=== PATIENT | female | born 1940 | race Caucasian/White ===

== ENCOUNTER 2018-02-28 12:28 | Outpatient (CLI) | payer MEDICARE, BC ==
[~2018-02-28 12:28] MED LIST: ALBU6.7H INH; AMIO200T57 PO; ATOR20TA66 PO; CARV-49 PO; CYAN10006 IM; FLUT1DIS4 INH; LEVE250T PO; LOSA25TA21 PO; METF10002 PO; METF500T4 PO; MONT10TA24 PO
== END 2018-02-28 23:59 | disposition home or self-care (01) ==
LOC: CARD DIAG 12:28
PROVIDERS: ATTEND Internal Medicine Cardiovascular Disease
DX: I37.1 Nonrheumatic pulmonary valve insufficiency (principal); I35.8 Other nonrheumatic aortic valve disorders; I48.91 Unspecified atrial fibrillation; I10 Essential (primary) hypertension; E11.9 Type 2 diabetes mellitus without complications; J45.909 Unspecified asthma, uncomplicated; Z85.828 Personal history of other malignant neoplasm of skin
CPT/HCPCS: 93306

== ENCOUNTER 2019-07-08 10:01 | Outpatient (CLI) | payer MEDICARE, BC ==
[~2019-07-08 10:01] MED LIST changes: -ALBU6.7H INH; +ALBU6.7H9 INH; -AMIO200T57 PO; +AMIO200T61 PO; -LOSA25TA21 PO; +LOSA25TA41 PO; +METF-436 PO; +METF-438 PO; -METF10002 PO; -METF500T4 PO
[2019-07-08 10:40] LABS: TOTAL HEMOGLOBIN 16.3 G/dl (12.0-16.0)
== END 2019-07-08 23:59 | disposition home or self-care (01) ==
LOC: RT 10:01
PROVIDERS: ATTEND Internal Medicine Cardiovascular Disease
DX: J98.4 Other disorders of lung (principal); I51.7 Cardiomegaly; I48.91 Unspecified atrial fibrillation; J45.909 Unspecified asthma, uncomplicated; I10 Essential (primary) hypertension; E11.9 Type 2 diabetes mellitus without complications; Z90.710 Acquired absence of both cervix and uterus; Z79.899 Other long term (current) drug therapy
CPT/HCPCS: 71046; 85018; 94010; 94727; 94729

== ENCOUNTER 2021-10-11 07:34 | Day surgery (SDC) | payer MEDICARE, BC ==
[2021-10-10 13:58] LABS: ALBUMIN 3.4 G/DL (3.4-5.0); ANION GAP 9 (8-16); BASOPHILS % (AUTO) 0.5 % (0-1); BLOOD UREA NITROGEN 13 MG/DL (7-18); BUN/CREATININE RATIO 11.9 (6.6-38.0); CALCIUM 8.9 MG/DL (8.5-10.1); CHLORIDE 110 MMOL/L (99-107); CREATININE 1.09 MG/DL (0.40-0.90); EOSINOPHILS # (AUTO) 0.2 X10'3 (0-0.9); EOSINOPHILS % (AUTO) 2.5 % (0-6); GLUCOSE 140 MG/DL (70-104); HEMATOCRIT 45.1 % (35.0-45.0); HEMOGLOBIN 14.7 g/dl (12.0-16.0); LYMPHOCYTES # (AUTO) 1.8 X10'3 (1.1-4.8); LYMPHOCYTES % (AUTO) 27.4 % (21-51); MEAN CORPUSCULAR HEMOGLOBIN 27.4 PG (27.0-31.0); MEAN CORPUSCULAR HGB CONC 32.5 g/dL (33.0-36.5); MEAN CORPUSCULAR VOLUME 84.3 FL (78-98); MONOCYTES # (AUTO) 0.4 X10'3 (0-0.9); MONOCYTES % (AUTO) 6.4 % (2-12); NEUTROPHILS # (AUTO) 4.1 X10'3 (1.8-7.7); NEUTROPHILS % (AUTO) 63.2 % (42-75); PLATELET COUNT 184 X10'3 (140-440); POTASSIUM 4.2 MMOL/L (3.5-5.1); RED BLOOD COUNT 5.34 X10'6 (4.20-5.60); RED CELL DISTRIBUTION WIDTH 15.8 % (11.5-14.5); SODIUM 146 MMOL/L (135-145); WHITE BLOOD COUNT 6.6 X10'3 (4.5-11.0); eGFR 48 ML/MIN
[~2021-10-11] VITALS: Ht 172.7 cm; Wt 114.9 kg
[2021-10-11] VITALS (7 sets, daily range): BP systolic 127–154; BP diastolic 56–96
[~2021-10-11 07:34] MED LIST changes: +MONT-40 PO; -MONT10TA24 PO
[2021-10-11] MEDS ORDERED: diphenhydrAMINE 25mg capsule PO ONE (07:55)
[2021-10-11] MEDS ORDERED: amiodarone 150mg/dext, iso-os 100 ML IV ONE (07:55)
[2021-10-11] MEDS ORDERED: LORazepam 0.5 MG tablet PO ONE (07:55)
[2021-10-11] MEDS ORDERED: MIDAZolam 1mg/ml 10ml vial IV ONE (07:55)
[2021-10-11] MEDS ORDERED: atropine 0.1mg/ml 10ml syringe IV ONE (07:55)
[2021-10-11] MEDS ORDERED: morphine 10mg/ml inj. IV ONE (07:55)
[2021-10-11] MEDS ORDERED: APIX5TAB3 PO (08:20)
[2021-10-11] MEDS ORDERED: CHOL500049 PO (08:20)
[2021-10-11] MEDS ORDERED: GABA-530 PO (08:20)
[2021-10-11] MEDS ORDERED: CARV6.253 PO (08:20)
[2021-10-11] MEDS ORDERED: DAPA10TA PO (08:20)
[2021-10-11] MEDS ORDERED: ROSU10TA28 PO (08:20)
[2021-10-11] MEDS ORDERED: probiotic (08:27)
[2021-10-11] MEDS ORDERED: BIOT10005 (08:27)
[2021-10-11] MEDS ORDERED: allegra (08:27)
[2021-10-11] MEDS ORDERED: MONT10TA21 PO (08:27)
== END 2021-10-11 11:25 | disposition home or self-care (01) ==
LOC: SSTAY O 07:34
PROVIDERS: ATTEND Internal Medicine Cardiovascular Disease
DX: I48.0 Paroxysmal atrial fibrillation (principal); E11.9 Type 2 diabetes mellitus without complications; I10 Essential (primary) hypertension; E78.5 Hyperlipidemia, unspecified; I25.10 Atherosclerotic heart disease of native coronary artery without angina pectoris; Z79.899 Other long term (current) drug therapy; Z79.01 Long term (current) use of anticoagulants; Z79.84 Long term (current) use of oral hypoglycemic drugs
CPT/HCPCS: 36415; 80048; 82948; 85025; 85610; 92960; 93005; J2250; J2270

== ENCOUNTER 2021-11-22 08:33 | Outpatient (CLI) | payer MEDICARE, BC ==
[~2021-11-22 08:33] MED LIST changes: -ALBU6.7H9 INH; +APIX5TAB3 PO; -ATOR20TA66 PO; +BIOT10005; -CARV-49 PO; +CARV6.253 PO; +CHOL500049 PO; +DAPA10TA PO; -FLUT1DIS4 INH; +GABA-530 PO; -LEVE250T PO; -LOSA25TA41 PO; -METF-438 PO; -MONT-40 PO; +MONT10TA21 PO; +ROSU10TA28 PO; +allegra; +probiotic
== END 2021-11-22 23:59 | disposition home or self-care (01) ==
LOC: RT 08:33
PROVIDERS: ATTEND Internal Medicine Cardiovascular Disease
DX: I10 Essential (primary) hypertension (principal); Z79.899 Other long term (current) drug therapy
CPT/HCPCS: 71046; 94010; 94727; 94729

== ENCOUNTER 2023-03-25 05:46 | Inpatient (IN) | payer MEDICARE, BC ==
[2023-03-21 12:03] LABS: BASOPHILS % (AUTO) 0.5 % (0-1); EOSINOPHILS # (AUTO) 0.2 X10'3 (0-0.9); LYMPHOCYTES # (AUTO) 2.4 X10'3 (1.1-4.8); MEAN CORPUSCULAR HEMOGLOBIN 27.6 PG (27.0-31.0); MEAN CORPUSCULAR HGB CONC 32.2 g/dL (33.0-36.5); MEAN CORPUSCULAR VOLUME 85.8 FL (78-98); MEAN PLATELET VOLUME 9.7 FL (7.4-10.4); MONOCYTES # (AUTO) 0.6 X10'3 (0-0.9); MONOCYTES % (AUTO) 6.6 % (2-12); NEUTROPHILS # (AUTO) 5.4 X10'3 (1.8-7.7); NEUTROPHILS % (AUTO) 62.9 % (42-75); PRE OP HEMATOCRIT 49.6 % (35.0-45.0); PRE OP PLATELET COUNT 178 X10'3 (140-440); RED BLOOD COUNT 5.78 X10'6 (4.20-5.60); RED CELL DISTRIBUTION WIDTH 16.3 % (11.5-14.5)
[2023-03-21 12:20] LABS: ALBUMIN 3.6 G/DL (3.4-5.0); ALBUMIN/GLOBULIN RATIO 0.9 (1.1-1.5); ALKALINE PHOSPHATASE 74 IU/L (46-116); BLOOD UREA NITROGEN 14 MG/DL (7-18); BUN/CREATININE RATIO 14.1 (10.0-20.0); CALCIUM 9.4 MG/DL (8.5-10.1); CHLORIDE 105 MMOL/L (99-107); CREATININE 0.99 MG/DL (0.40-0.90); PRE OP ALT 32 U/L (30-65); PRE OP ANION GAP 9 (8-16); PRE OP AST 31 U/L (10-37); PRE OP BILIRUB, TOTAL 0.7 MG/DL (0.0-1.0); PRE OP GLUCOSE 171 MG/DL (70-104); PRE OP POTASSIUM 4.1 MMOL/L (3.4-5.1); PRE OP SODIUM 141 MMOL/L (135-145); TOTAL PROTEIN 7.4 G/DL (6.4-8.2); eGFR 54 ML/MIN
[~2023-03-25] VITALS: Ht 172.7 cm; Wt 106.8 kg
[2023-03-25] VITALS (28 sets, daily range): BP systolic 124–192; BP diastolic 56–101
[~2023-03-25 05:46] MED LIST changes: -BIOT10005; +BIOT10005 PO; +DOCUMENT DATE & TIME OF BETA-BLOCKER PO ONE; +FEXO180T94 PO; +LACT1CAP65 PO; +MONT-48 PO; -MONT10TA21 PO; -allegra; +cefazolin 2gm/D5W 100mL 100 ML IV ONE; +famotidine 20mg tablet PO ONE; -probiotic; +ringers solution, lacted 1,000 ML IV SCH; +tranexamic acid 650mg tablet PO ONE; +vancomycin 1,500 MG in NS 300ml IV soln IV ONE
--- NOTE | 2023-03-25 05:55 | NUR ---
CSM: PEDAL PULSES PRESENT AND MARKED, PT WATCHED THE VIDEO. MUPIROCIN CREAM USED AND PT EDUCATED ON THE INCENTIVE SPIROMETER. Addendum: 03/25/23 at 1251 by Nelly Arambula RN, RN Amended: Links added.
[2023-03-25] MEDS ORDERED: ROPIVAcaine 0.5% (5mg/ml) 30ml vial ONE ×2 (07:12→09:22)
[2023-03-25] MEDS ORDERED: midazolam 1 mg/ML 2ml injection ONE (07:56)
[2023-03-25] MEDS ORDERED: cloNIDine hcl/PF 100mcg/ml inj ONE (07:59)
[2023-03-25] MEDS ORDERED: fentaNYL /PF 50mcg/ml 5ml ampule ONE (08:02)
[2023-03-25] MEDS ORDERED: LIDOcaine 2% (20mg/ml) 5ml vial ONE (09:22)
[2023-03-25] MEDS ORDERED: dexamethasone sod phosphate 4mg/ml inj. ONE (09:22)
[2023-03-25] MEDS ORDERED: rocuronium 10mg/ml inj IV ONE (09:22)
[2023-03-25] MEDS ORDERED: 0.9 % SODIUM CHLORIDE 10 ML VIAL ONE (09:22)
[2023-03-25] MEDS ORDERED: ondansetron/PF 4mg/2ml inj ONE (09:22)
[2023-03-25] MEDS ORDERED: propofol inj 20 ML IV ONE (09:22)
[2023-03-25] MEDS ORDERED: HYDROmorphone/PF 0.2 MG/ML SYRINGE IV PRN ×2 (09:25)
[2023-03-25] MEDS ORDERED: meperidine/PF 25mg/ml syringe IV PRN ×3 (09:25)
[2023-03-25] MEDS ORDERED: labetalol 20mg/4ml (5mg/ml) syringe IV PRN (09:25)
[2023-03-25] MEDS ORDERED: hydrALAZINE 20mg/ml inj. IV PRN (09:25)
[2023-03-25] MEDS ORDERED: ringers solution, lacted 1,000 ML IV SCH (09:25)
[2023-03-25] MEDS ORDERED: acetaminophen 1,000mg/100ml IV 100 ML IV PRN (09:25)
[2023-03-25] MEDS ORDERED: ondansetron/PF 4mg/2ml inj IV PRN ×2 (09:25→10:45)
[2023-03-25] MEDS ORDERED: proCHLORperazine 10 MG/2 ml inj IV PRN (09:25)
[2023-03-25] MEDS ORDERED: neostigmine methylsulfate 1 MG/ML 10ml vial ONE (10:39)
[2023-03-25] MEDS ORDERED: glycopyrrolate 0.2mg/ml inj ONE (10:39)
[2023-03-25] MEDS ORDERED: magnesium hydroxide 30ml (MOM) UD suspension PO PRN (10:45)
[2023-03-25] MEDS: potassium cl 20mEq in 1/2 NS 1,000 ML IV SCH ×2 (10:45→16:03)
[2023-03-25] MEDS ORDERED: diphenhydrAMINE 25mg capsule PO PRN ×2 (10:45)
[2023-03-25] MEDS ORDERED: cyanocobalamin 500mcg tablet PO SCH (10:45)
[2023-03-25] MEDS ORDERED: bisacodyl 10mg suppository rectal RC PRN (10:45)
[2023-03-25] MEDS ORDERED: HYDROmorphone inj. 0.5 MG/0.5 ML DISP.SYRIN IV PRN (10:45)
[2023-03-25] MEDS ORDERED: HYDROmorphone 1 mg/ml syringe IV PRN (10:45)
[2023-03-25] MEDS ORDERED: oxyCODONE IR 5mg (immed. release) tablet PO PRN ×2 (10:45)
[2023-03-25] MEDS ORDERED: cholecalciferol (vitamin D3) 1,000 unit (25mcg) tablet PO SCH (10:45)
[2023-03-25] MEDS ORDERED: naloxone 0.4 mg/ml inj IV PRN (10:45)
[2023-03-25] MEDS ORDERED: acetaminophen 325mg tablet PO PRN (10:45)
--- NOTE | 2023-03-25 10:55 | NUR ---
Received from OR via BED, accompanied by Anesthesiologist-DR CORDOBA, report given. PATIENT WAKING UP, NO S/S OF PAIN, V/S WNL, SCD ON, 20G TO LUE, drsg to RIGHT KNEE-CDI WITH KNEE WRAP AND POWDER PACK PRESENT. GENERAL ANESTHESIA GIVEN, NEURO INTACT, PULSES PRESENT BILAT LE, TOES-PINK, WARM
--- NOTE | 2023-03-25 12:50 | NUR ---
PT HAS BEEN RESTING QUIETLY, DENIES PAIN, VSS, NO CHANGES IN ASSESSMENT, WAITING FOR RN TO BE AVAILABLE ON FLOOR.
[2023-03-25] MEDS: gabapentin 100mg capsule PO SCH ×2 (13:00→21:00)
--- NOTE | 2023-03-25 13:44 | NUR ---
Patient in room PAS IN 901. I have received report from Kenya GOMEZ and had the opportunity to ask questions and assume patient care.
--- NOTE | 2023-03-25 13:55 | NUR ---
PT HAS DONE WELL, PAIN MINIMAL, EAGER TO GET OUT OF BED, VSS, ASSESSMENT UNCHANGED-+PULSES BLE, DRSG-CDI, SCDS ON, F/C PRESENT-DRAINING WELL, CLEAR YELLOW URINE. REPORT CALLED TO NURSE-ALL QUESTIONS ANSWERED, TAKEN WITH ALL BELONGINGS TO ROOM 4023A- BED LOW AND LOCKED, CALL LIGHT IN REACH, PRIMARY NURSE IN TO RECEIVE PT.
[2023-03-25] MEDS: acetaminophen 325mg tablet PO SCH ×2 (14:00→20:00)
[2023-03-25] MEDS: ceFAZolin/D5W- 1GM premix 50 ML IV SCH (16:05)
--- NOTE | 2023-03-25 18:00 | NUR ---
I have reviewed and agree with interventions, assessments, and documentation by Mariel Anguiano LVN.
--- NOTE | 2023-03-25 18:18 | NUR ---
Problems reprioritized. Patient report given, questions answered & plan of care reviewed with Bela GOMEZ.
[2023-03-25] MEDS ORDERED: vancomycin/NS 1 GM ADD-VANTAGE 250 ML IV SCH (20:00)
[2023-03-25] MEDS: sennosides 8.6mg tablet PO SCH (21:00)
[2023-03-25] MEDS: metFORMIN 500mg tablet PO SCH (21:29)
[2023-03-25] MEDS: apixaban 5mg tablet PO SCH (21:29)
[2023-03-25] MEDS: carvedilol 6.25mg tablet PO SCH (21:30)
[2023-03-25] MEDS: atorvastatin 20mg tablet PO SCH (21:30)
[2023-03-25] MEDS: montelukast 10mg tablet PO SCH (21:30)
[2023-03-25] MEDS: amiodarone 200mg tablet PO SCH (21:31)
[2023-03-25] MEDS: HYDROcodone/acetaminophen 10/325mg tab PO PRN (21:31)
--- NOTE | 2023-03-25 22:00 | NUR ---
PATIENT IS REFUSING INSULIN FOR A BLOOD SUGAR OF 200. SHE TAKES METFORMIN BUT REFUSED HER 500 MG TAB AND SAID THAT SHE "ONLY TAKES HALF A TABLET AT HOME TWICE A DAY BECAUSE IT MAKES HER NAUSEOUS".
[2023-03-26] MEDS: ceFAZolin/D5W- 1GM premix 50 ML IV SCH (00:09)
[2023-03-26] MEDS: acetaminophen 325mg tablet PO SCH ×4 (00:10→20:49)
[2023-03-26 02:00] VITALS: BP 122/59
[2023-03-26] MEDS: potassium cl 20mEq in 1/2 NS 1,000 ML IV SCH (02:45)
[2023-03-26] MEDS: HYDROcodone/acetaminophen 10/325mg tab PO PRN ×3 (05:20→20:48)
[2023-03-26 05:53] LABS: BASOPHILS % (AUTO) 0.2 % (0-1); EOSINOPHILS % (AUTO) 0 % (0-6); HEMATOCRIT 39.7 % (35.0-45.0); HEMOGLOBIN 12.8 g/dl (12.0-16.0); LYMPHOCYTES # (AUTO) 1.7 X10'3 (1.1-4.8); LYMPHOCYTES % (AUTO) 13.9 % (21-51); MEAN CORPUSCULAR HEMOGLOBIN 27.5 PG (27.0-31.0); MEAN CORPUSCULAR HGB CONC 32.3 g/dL (33.0-36.5); MEAN CORPUSCULAR VOLUME 85.1 FL (78-98); MEAN PLATELET VOLUME 9.5 FL (7.4-10.4); MONOCYTES # (AUTO) 0.8 X10'3 (0-0.9); MONOCYTES % (AUTO) 6.9 % (2-12); NEUTROPHILS # (AUTO) 9.5 X10'3 (1.8-7.7); PLATELET COUNT 147 X10'3 (140-440); RED BLOOD COUNT 4.66 X10'6 (4.20-5.60); WHITE BLOOD COUNT 12.1 X10'3 (4.5-11.0)
[2023-03-26 05:57] LABS: ANION GAP 2 (8-16); CHLORIDE 108 MMOL/L (99-107); POTASSIUM 4.5 MMOL/L (3.5-5.1); SODIUM 138 MMOL/L (135-145)
[2023-03-26 06:00] VITALS: BP 107/61
--- NOTE | 2023-03-26 06:08 | NUR ---
Problems reprioritized. Patient report given, questions answered & plan of care reviewed with RANDAL VARGAS.
--- NOTE | 2023-03-26 06:20 | NUR ---
Patient in room ORTHO 4023. I have received report from PATRICIA Cramer and had the opportunity to ask questions and assume patient care.
[2023-03-26] MEDS ORDERED: non-formulary drug (Fexofenadine* (Allegra*) 1 TAB) PO SCH (08:00)
[2023-03-26] MEDS: amiodarone 200mg tablet PO SCH ×2 (08:00→20:48)
[2023-03-26] MEDS ORDERED: non-formulary drug (Biotin 1 CAP) PO SCH (08:00)
[2023-03-26] MEDS: carvedilol 6.25mg tablet PO SCH ×2 (08:00→20:48)
[2023-03-26] MEDS: metFORMIN 500mg tablet PO SCH ×2 (08:00→20:48)
[2023-03-26] MEDS: lactobacillus rhamnosus 10,000 MMU CELLS/CAPSULE PO SCH (08:24)
[2023-03-26] MEDS: apixaban 5mg tablet PO SCH ×2 (08:26→20:48)
[2023-03-26] MEDS: DAPAGLIFLOZIN 10MG TABLET PO SCH (08:27)
[2023-03-26] MEDS: gabapentin 100mg capsule PO SCH ×3 (08:29→20:48)
--- NOTE | 2023-03-26 08:54 | NUR ---
Cordarone and Coreg held at 0800 medication pass due to patient's BP of 115/44 and HR 51. Reasons for withholding both medications were discussed with the patient. Patient verbalized understanding.
[2023-03-26] MEDS ORDERED: normal saline 500ml IV soln 500 ML IV ONE (09:50)
[2023-03-26 10:00] VITALS: BP 134/78
[2023-03-26] MEDS ORDERED: ondansetron 4mg rapidly disintigrating tab PO PRN (15:00)
--- NOTE | 2023-03-26 15:15 | NUR ---
Joint surgery consult: Pt s/p R knee surgery this admit per EMR. Pt seen by ISELA for written/verbal high protein diet ed w/ RD contact information provided. ISELA encouraged pt to contact dietitian's office if further nutrition questions/concerns. Addendum: 03/26/23 at [address] Amended: Links added.
[2023-03-26 18:00] VITALS: BP 146/62
[2023-03-26] MEDS: sennosides 8.6mg tablet PO SCH (20:47)
[2023-03-26] MEDS: atorvastatin 20mg tablet PO SCH (20:48)
[2023-03-26] MEDS: montelukast 10mg tablet PO SCH (20:48)
[2023-03-26 22:00] VITALS: BP 128/78
[2023-03-27 02:00] VITALS: BP 116/69
[2023-03-27] MEDS: acetaminophen 325mg tablet PO SCH ×2 (02:17→07:14)
--- NOTE | 2023-03-27 02:22 | NUR ---
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
[2023-03-27 06:00] VITALS: BP 117/63
--- NOTE | 2023-03-27 06:10 | NUR ---
Patient in room ORTHO 4023. I have received report from Willem TEE and had the opportunity to ask questions and assume patient care.
[2023-03-27 06:24] LABS: BASOPHILS % (AUTO) 0.3 % (0-1); EOSINOPHILS # (AUTO) 0.1 X10'3 (0-0.9); EOSINOPHILS % (AUTO) 1.2 % (0-6); HEMATOCRIT 36.9 % (35.0-45.0); HEMOGLOBIN 11.9 g/dl (12.0-16.0); LYMPHOCYTES # (AUTO) 2.1 X10'3 (1.1-4.8); LYMPHOCYTES % (AUTO) 20.7 % (21-51); MEAN CORPUSCULAR HEMOGLOBIN 27.5 PG (27.0-31.0); MEAN CORPUSCULAR HGB CONC 32.2 g/dL (33.0-36.5); MEAN CORPUSCULAR VOLUME 85.4 FL (78-98); MEAN PLATELET VOLUME 9.9 FL (7.4-10.4); MONOCYTES # (AUTO) 1.2 X10'3 (0-0.9); MONOCYTES % (AUTO) 11.7 % (2-12); NEUTROPHILS # (AUTO) 6.6 X10'3 (1.8-7.7); NEUTROPHILS % (AUTO) 66.1 % (42-75); PLATELET COUNT 142 X10'3 (140-440); RED BLOOD COUNT 4.32 X10'6 (4.20-5.60); RED CELL DISTRIBUTION WIDTH 15.9 % (11.5-14.5); WHITE BLOOD COUNT 9.9 X10'3 (4.5-11.0)
--- NOTE | 2023-03-27 06:32 | NUR ---
Problems reprioritized. Patient report given, questions answered & plan of care reviewed with RANDAL Floyd.
[2023-03-27] MEDS: DAPAGLIFLOZIN 10MG TABLET PO SCH (07:11)
[2023-03-27] MEDS: apixaban 5mg tablet PO SCH ×2 (07:11→20:46)
[2023-03-27] MEDS: gabapentin 100mg capsule PO SCH ×3 (07:11→20:38)
[2023-03-27] MEDS: amiodarone 200mg tablet PO SCH ×2 (07:11→20:39)
[2023-03-27] MEDS: carvedilol 6.25mg tablet PO SCH ×2 (07:11→20:39)
[2023-03-27] MEDS: lactobacillus rhamnosus 10,000 MMU CELLS/CAPSULE PO SCH (07:11)
[2023-03-27] MEDS: HYDROcodone/acetaminophen 10/325mg tab PO PRN (07:12)
[2023-03-27] MEDS: metFORMIN 500mg tablet PO SCH ×2 (09:04→20:46)
[2023-03-27] MEDS ORDERED: acetaminophen 325mg tablet PO PRN (10:45)
[2023-03-27] MEDS ORDERED: pantoprazole 40mg Tablet.DR PO ONE (14:03)
[2023-03-27 18:00] VITALS: BP 144/73
--- NOTE | 2023-03-27 18:00 | NUR ---
I have reviewed and agree with interventions, assessments, and documentation by Mariel Anguiano LVN.
--- NOTE | 2023-03-27 18:32 | NUR ---
Problems reprioritized. Patient report given, questions answered & plan of care reviewed with Adwoa GOMEZ.
--- NOTE | 2023-03-27 18:51 | NUR ---
Patient in room ORTHO 4010. I have received report from RANDAL Madden and had the opportunity to ask questions and assume patient care.
--- NOTE | 2023-03-27 20:00 | NUR ---
I have reviewed and agree with all interventions, assessments performed and documented by RANDAL XIAO.
[2023-03-27] MEDS: montelukast 10mg tablet PO SCH (20:39)
[2023-03-27] MEDS: atorvastatin 20mg tablet PO SCH (20:39)
[2023-03-27] MEDS: sennosides 8.6mg tablet PO SCH (20:40)
[2023-03-27 22:00] VITALS: BP 133/57
--- NOTE | 2023-03-27 22:22 | NUR ---
Checked Pt Blood glucose it was 175. Pt refused insulin Protocol. Pt was educated on the importance of taking Insulin. Pt acknowledge the teaching, and still continued to refuse. Will continue to monitor Pt.
--- NOTE | 2023-03-28 03:26 | NUR ---
Checked Pt pulses on feet. They were bounding.
[2023-03-28 05:55] LABS: BASOPHILS % (AUTO) 0.4 % (0-1); EOSINOPHILS # (AUTO) 0.2 X10'3 (0-0.9); EOSINOPHILS % (AUTO) 1.9 % (0-6); HEMATOCRIT 32.4 % (35.0-45.0); HEMOGLOBIN 10.4 g/dl (12.0-16.0); LYMPHOCYTES # (AUTO) 2.4 X10'3 (1.1-4.8); LYMPHOCYTES % (AUTO) 26.3 % (21-51); MEAN CORPUSCULAR HEMOGLOBIN 27.4 PG (27.0-31.0); MEAN CORPUSCULAR HGB CONC 32.1 g/dL (33.0-36.5); MEAN CORPUSCULAR VOLUME 85.3 FL (78-98); MEAN PLATELET VOLUME 10.1 FL (7.4-10.4); MONOCYTES # (AUTO) 1.2 X10'3 (0-0.9); MONOCYTES % (AUTO) 12.6 % (2-12); NEUTROPHILS # (AUTO) 5.4 X10'3 (1.8-7.7); NEUTROPHILS % (AUTO) 58.8 % (42-75); PLATELET COUNT 132 X10'3 (140-440); WHITE BLOOD COUNT 9.3 X10'3 (4.5-11.0)
[2023-03-28 06:00] VITALS: BP 121/47
--- NOTE | 2023-03-28 06:11 | NUR ---
Problems reprioritized. Patient report given, questions answered & plan of care reviewed with RANDAL Madden.
--- NOTE | 2023-03-28 06:15 | NUR ---
Patient in room ORTHO 4023. I have received report from Yuri TEE and had the opportunity to ask questions and assume patient care.
[2023-03-28] MEDS: DAPAGLIFLOZIN 10MG TABLET PO SCH (07:18)
[2023-03-28] MEDS: amiodarone 200mg tablet PO SCH ×2 (07:18→21:17)
[2023-03-28] MEDS: lactobacillus rhamnosus 10,000 MMU CELLS/CAPSULE PO SCH (07:19)
[2023-03-28] MEDS: pantoprazole 40mg Tablet.DR PO SCH (07:19)
[2023-03-28] MEDS: apixaban 5mg tablet PO SCH ×2 (07:19→21:14)
[2023-03-28] MEDS: gabapentin 100mg capsule PO SCH ×3 (07:19→21:15)
[2023-03-28] MEDS: metFORMIN 500mg tablet PO SCH ×2 (07:19→21:16)
[2023-03-28] MEDS: carvedilol 6.25mg tablet PO SCH ×2 (07:19→21:17)
[2023-03-28] MEDS: HYDROcodone/acetaminophen 10/325mg tab PO PRN (07:21)
[2023-03-28 10:00] VITALS: BP 129/51
[2023-03-28] MEDS ORDERED: lactulose 20gm/30ml cup PO ONE (11:25)
[2023-03-28 12:47] LABS: BASOPHILS % (AUTO) 0.4 % (0-1); EOSINOPHILS # (AUTO) 0.1 X10'3 (0-0.9); EOSINOPHILS % (AUTO) 1.7 % (0-6); HEMATOCRIT 32.1 % (35.0-45.0); HEMOGLOBIN 10.3 g/dl (12.0-16.0); LYMPHOCYTES # (AUTO) 2.3 X10'3 (1.1-4.8); LYMPHOCYTES % (AUTO) 25.2 % (21-51); MEAN CORPUSCULAR HEMOGLOBIN 27.2 PG (27.0-31.0); MEAN CORPUSCULAR VOLUME 85.1 FL (78-98); MEAN PLATELET VOLUME 9.7 FL (7.4-10.4); MONOCYTES % (AUTO) 11.6 % (2-12); NEUTROPHILS # (AUTO) 5.5 X10'3 (1.8-7.7); NEUTROPHILS % (AUTO) 61.1 % (42-75); PLATELET COUNT 136 X10'3 (140-440); RED BLOOD COUNT 3.77 X10'6 (4.20-5.60); RED CELL DISTRIBUTION WIDTH 16.4 % (11.5-14.5)
[2023-03-28 12:52] LABS: ALANINE AMINOTRANSFERASE 16 U/L (12-78); ALBUMIN 2.4 G/DL (3.4-5.0); ALBUMIN/GLOBULIN RATIO 0.7 (1.1-1.5); ALKALINE PHOSPHATASE 56 IU/L (46-116); ANION GAP 5 (8-16); ASPARTATE AMINO TRANSFERASE 12 U/L (10-37); BILIRUBIN,TOTAL 0.4 MG/DL (0.1-1.0); BLOOD UREA NITROGEN 16 MG/DL (7-18); BUN/CREATININE RATIO 16.8 (10.0-20.0); CALCIUM 8.7 MG/DL (8.5-10.1); CHLORIDE 106 MMOL/L (99-107); CREATININE 0.95 MG/DL (0.40-0.90); GLUCOSE 153 MG/DL (70-104); SODIUM 141 MMOL/L (135-145); TOTAL CARBON DIOXIDE 29.7 MMOL/L (24-32); TOTAL PROTEIN 5.8 G/DL (6.4-8.2); eGFR 56 ML/MIN
--- NOTE | 2023-03-28 15:36 | NUR ---
transferred patient from commode to bed and became lighted and dizzy. Patient color visibly changed and o2 dropped to 89%. got patient in bed and put the head of the bed down. Placed her on 2L of , went up to 98%.
--- NOTE | 2023-03-28 15:49 | NUR ---
Patient has had multiple near syncopal episodes and hypotension. PA placed patient on telemetry, paged certified surgical tech/first assistant and canceled [facility] transfer for tomorrow. Patient had a BM and sample was sent to the lab.
--- NOTE | 2023-03-28 16:59 | NUR ---
Problems reprioritized. Patient report given, questions answered & plan of care reviewed with Ronnie GOMEZ.
--- NOTE | 2023-03-28 17:00 | NUR ---
Patient in room ORTHO 4023. I have received report from Salinas TEE and had the opportunity to ask questions and assume patient care.
--- NOTE | 2023-03-28 17:00 | NUR ---
Patient in room ORTHO 4023. I have received report from Mariel TEE and had the opportunity to ask questions and assume patient care.
[2023-03-28 17:23] LABS: OCCULT BLOOD STOOL NEGATIVE (Neg)
[2023-03-28] MEDS ORDERED: PERFLUTREN PROTEIN-A MICROSPHR (Optison) 0.22 MG/ML 3ML VIAL IV ONE (17:50)
[2023-03-28 18:00] VITALS: BP 133/62
--- NOTE | 2023-03-28 18:40 | NUR ---
Accucheck of 209 was taken after patient ate in error
--- NOTE | 2023-03-28 18:41 | NUR ---
[employer] documentation: I have reviewed and agree with all interventions, assessments performed and documented by Mariel Barkley LVN .
[2023-03-28] MEDS: sennosides 8.6mg tablet PO SCH (20:09)
[2023-03-28] MEDS: atorvastatin 20mg tablet PO SCH (21:15)
[2023-03-28] MEDS: montelukast 10mg tablet PO SCH (21:16)
[2023-03-28 22:00] VITALS: BP 115/56
[2023-03-29] MEDS: HYDROcodone/acetaminophen 10/325mg tab PO PRN ×3 (00:27→21:12)
--- NOTE | 2023-03-29 06:31 | NUR ---
Patient in room ORTHO 4023. I have received report from Unique GOMEZ and had the opportunity to ask questions and assume patient care.
[2023-03-29 06:44] VITALS: BP 140/54
[2023-03-29] MEDS: amiodarone 200mg tablet PO SCH ×2 (07:17→21:13)
[2023-03-29] MEDS: carvedilol 6.25mg tablet PO SCH ×2 (07:17→21:13)
[2023-03-29] MEDS: lactobacillus rhamnosus 10,000 MMU CELLS/CAPSULE PO SCH (07:17)
[2023-03-29] MEDS: pantoprazole 40mg Tablet.DR PO SCH (07:17)
[2023-03-29] MEDS: apixaban 5mg tablet PO SCH ×2 (07:17→21:13)
[2023-03-29] MEDS: gabapentin 100mg capsule PO SCH ×2 (07:17→12:59)
[2023-03-29] MEDS: metFORMIN 500mg tablet PO SCH (07:17)
[2023-03-29] MEDS: DAPAGLIFLOZIN 10MG TABLET PO SCH (07:18)
[2023-03-29 11:16] VITALS: BP 114/56
[2023-03-29 13:29] VITALS: BP_SYST 102; BP_SYST 122; BP_SYST 131; BP_DIAS 55; BP_DIAS 60; BP_DIAS 62
[2023-03-29] MEDS ORDERED: gabapentin 300mg capsule PO SCH (13:41)
[2023-03-29 18:00] VITALS: BP 118/85
--- NOTE | 2023-03-29 18:20 | NUR ---
Problems reprioritized. Patient report given, questions answered & plan of care reviewed with Unique GOMEZ.
[2023-03-29 20:00] VITALS: BP_SYST 118; BP_SYST 135; BP_DIAS 57; BP_DIAS 85
[2023-03-29] MEDS: sennosides 8.6mg tablet PO SCH (21:00)
[2023-03-29] MEDS: montelukast 10mg tablet PO SCH (21:12)
[2023-03-29] MEDS: atorvastatin 20mg tablet PO SCH (21:13)
[2023-03-29 22:00] VITALS: BP 114/56
--- NOTE | 2023-03-29 23:30 | NUR ---
Patient in room ORTHO 4023. I have received report from Nancy GOMEZ and had the opportunity to ask questions and assume patient care.
[2023-03-30] MEDS: HYDROcodone/acetaminophen 10/325mg tab PO PRN (05:05)
--- NOTE | 2023-03-30 06:29 | NUR ---
Patient in room ORTHO 4023. I have received report from Unique and had the opportunity to ask questions and assume patient care.
[2023-03-30 06:33] VITALS: BP 121/54
[2023-03-30] MEDS: apixaban 5mg tablet PO SCH (08:34)
[2023-03-30] MEDS: carvedilol 6.25mg tablet PO SCH (08:34)
[2023-03-30] MEDS: lactobacillus rhamnosus 10,000 MMU CELLS/CAPSULE PO SCH (08:34)
[2023-03-30] MEDS: pantoprazole 40mg Tablet.DR PO SCH (08:34)
[2023-03-30] MEDS: DAPAGLIFLOZIN 10MG TABLET PO SCH (08:34)
[2023-03-30] MEDS: amiodarone 200mg tablet PO SCH (08:34)
[2023-03-30 10:18] VITALS: BP 131/60
--- NOTE | 2023-03-30 11:11 | NUR ---
DM consult: Per EMR pt with T2DM, well controlled for age with A1c 7.0%. DM education not warranted at this time. Pt on a CHO controlled diet with fluctuating PO intake, documented with mostly 50-75% PO intake though up to 75-100% PO intake at three most recent meals meeting estimated nutrient needs. Per EMR pt discharging. Will continue to follow and provide full nutrition assessment tomorrow if pt does not discharge. Addendum: 03/30/23 at [address] Amended: Links added.
--- NOTE | 2023-03-30 15:10 | NUR ---
Problems reprioritized. Patient report given, questions answered & plan of care reviewed with Megha at [facility].
--- NOTE | 2023-03-30 17:09 | NUR ---
Called [facility] . Advised there was a 16:00 p/u, then CM note indicated 16:30 p/u. Katarzyna Hunter did say they were running behind but the patient was on the schedule to be picked up.
--- NOTE | 2023-03-30 18:08 | NUR ---
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 Report given to Jenna
[2023-03-31] MEDS ORDERED: amiodarone 200mg tablet PO SCH (08:00)
== END 2023-03-30 18:22 | DRG 470 ==
LOC: PAS IN 05:46 → ORTHO 4S 14:13
PROVIDERS: ADMIT Orthopaedic Surgery; ATTEND Orthopaedic Surgery
PROC: 8E0YXBZ Computer Assisted Procedure of Lower Extremity (ICD-10-PCS; 2023-03-25)
PROC: 8E0Y0CZ Robotic Assisted Procedure of Lower Extremity, Open Approach (ICD-10-PCS; 2023-03-25)
PROC: 0SRC0J9 Replacement of Right Knee Joint with Synthetic Substitute, Cemented, Open Approach (ICD-10-PCS; principal; 2023-03-25 08:20)
DX: M17.11 Unilateral primary osteoarthritis, right knee (principal); I50.32 Chronic diastolic (congestive) heart failure; E11.9 Type 2 diabetes mellitus without complications; G47.33 Obstructive sleep apnea (adult) (pediatric); Z60.2 Problems related to living alone; M21.161 Varus deformity, not elsewhere classified, right knee; I11.0 Hypertensive heart disease with heart failure; R42 Dizziness and giddiness; I25.10 Atherosclerotic heart disease of native coronary artery without angina pectoris; I48.0 Paroxysmal atrial fibrillation; I95.1 Orthostatic hypotension; Z79.01 Long term (current) use of anticoagulants; Z79.899 Other long term (current) drug therapy
CPT/HCPCS: 36415; 80051; 80053; 82272; 82607; 82948; 83036; 84443; 85025; 87081; 93005; 93306; 97110; 97116; 97161; 97530; A4215; A4615; A6258; A7000; C1713; C1758; C1776; G0378; J0131; J0690; J0735; J1100; J1170; J2175; J2250; J2405; J2704; J2710; J2795; J3010; J3370; J3480; J3490; J7040; J7120

== ENCOUNTER 2023-06-19 07:59 | Day surgery (SDC) | payer MEDICARE, BC ==
[2023-06-18 12:07] LABS: BASOPHILS # (AUTO) 0.1 X10'3 (0-0.2); BASOPHILS % (AUTO) 0.6 % (0-1); EOSINOPHILS # (AUTO) 0.1 X10'3 (0-0.9); EOSINOPHILS % (AUTO) 1.6 % (0-6); HEMATOCRIT 43.7 % (35.0-45.0); HEMOGLOBIN 13.9 g/dl (12.0-16.0); LYMPHOCYTES # (AUTO) 2.3 X10'3 (1.1-4.8); LYMPHOCYTES % (AUTO) 24.9 % (21-51); MEAN CORPUSCULAR HEMOGLOBIN 26.9 PG (27.0-31.0); MEAN CORPUSCULAR HGB CONC 31.8 g/dL (33.0-36.5); MEAN CORPUSCULAR VOLUME 84.6 FL (78-98); MEAN PLATELET VOLUME 9.6 FL (7.4-10.4); MONOCYTES # (AUTO) 0.7 X10'3 (0-0.9); MONOCYTES % (AUTO) 7.3 % (2-12); NEUTROPHILS # (AUTO) 5.9 X10'3 (1.8-7.7); NEUTROPHILS % (AUTO) 65.6 % (42-75); PLATELET COUNT 192 X10'3 (140-440); RED BLOOD COUNT 5.16 X10'6 (4.20-5.60); RED CELL DISTRIBUTION WIDTH 16.8 % (11.5-14.5)
[2023-06-18 12:14] LABS: ANION GAP 11 (8-16); BLOOD UREA NITROGEN 20 MG/DL (7-18); BUN/CREATININE RATIO 19.6 (10.0-20.0); CHLORIDE 105 MMOL/L (99-107); CREATININE 1.02 MG/DL (0.40-0.90); GLUCOSE 155 MG/DL (70-104); POTASSIUM 4.3 MMOL/L (3.5-5.1); SODIUM 138 MMOL/L (135-145); TOTAL CARBON DIOXIDE 22.2 MMOL/L (24-32); eGFR 52 ML/MIN
[~2023-06-19] VITALS: Ht 172.7 cm; Wt 105.3 kg
[2023-06-19] VITALS (10 sets, daily range): BP systolic 121–150; BP diastolic 66–105; PULSE 57–125; RESP 14–15; TEMP 98.2; O2SAT 92–99
[~2023-06-19 07:59] MED LIST changes: +AMI200T PO; -AMIO200T61 PO; -DOCUMENT DATE & TIME OF BETA-BLOCKER PO ONE; -cefazolin 2gm/D5W 100mL 100 ML IV ONE; -famotidine 20mg tablet PO ONE; -ringers solution, lacted 1,000 ML IV SCH; -tranexamic acid 650mg tablet PO ONE; -vancomycin 1,500 MG in NS 300ml IV soln IV ONE
[2023-06-19] MEDS ORDERED: atropine 0.1mg/ml 10ml syringe IV ONE (08:25)
[2023-06-19] MEDS ORDERED: morphine 10mg/ml inj. IV ONE (08:25)
[2023-06-19] MEDS ORDERED: MIDAZolam 1mg/ml 10ml vial IV ONE (08:25)
[2023-06-19] MEDS ORDERED: amiodarone 150mg/dext, iso-os 100 ML IV ONE (08:25)
[2023-06-19] MEDS ORDERED: LORazepam 0.5 MG tablet PO ONE (08:25)
[2023-06-19] MEDS ORDERED: diphenhydrAMINE 25mg capsule PO ONE (08:25)
[2023-06-19] MEDS ORDERED: normal saline 1000ml 1,000 ML IV SCH (08:25)
== END 2023-06-19 11:15 | disposition home or self-care (01) ==
LOC: SSTAY O 07:59
PROVIDERS: ATTEND Internal Medicine Cardiovascular Disease
DX: I48.0 Paroxysmal atrial fibrillation (principal); I25.10 Atherosclerotic heart disease of native coronary artery without angina pectoris; I34.0 Nonrheumatic mitral (valve) insufficiency; E11.9 Type 2 diabetes mellitus without complications; E78.5 Hyperlipidemia, unspecified; G47.33 Obstructive sleep apnea (adult) (pediatric); E66.9 Obesity, unspecified; Z68.35 Body mass index [BMI] 35.0-35.9, adult; J45.909 Unspecified asthma, uncomplicated; I11.0 Hypertensive heart disease with heart failure; I50.30 Unspecified diastolic (congestive) heart failure; Z90.710 Acquired absence of both cervix and uterus; Z90.49 Acquired absence of other specified parts of digestive tract; Z98.890 Other specified postprocedural states; Z98.49 Cataract extraction status, unspecified eye; Z79.01 Long term (current) use of anticoagulants; Z79.899 Other long term (current) drug therapy
CPT/HCPCS: 36415; 80048; 82948; 85025; 85610; 92960; 93005; J2250; J2274; J7030; A4620

== ENCOUNTER 2024-06-16 06:49 | Day surgery (SDC) | payer MEDICARE, BC ==
[2024-06-15 11:41] LABS: BASOPHILS % (AUTO) 0.6 % (0-1); EOSINOPHILS # (AUTO) 0.1 X10'3 (0-0.9); EOSINOPHILS % (AUTO) 1.7 % (0-6); HEMATOCRIT 43.1 % (35.0-45.0); HEMOGLOBIN 13.9 g/dl (12.0-16.0); MEAN CORPUSCULAR HEMOGLOBIN 27.3 PG (27.0-31.0); MEAN CORPUSCULAR HGB CONC 32.2 g/dL (33.0-36.5); MEAN CORPUSCULAR VOLUME 84.7 FL (78-98); MEAN PLATELET VOLUME 9.8 FL (7.4-10.4); MONOCYTES # (AUTO) 0.6 X10'3 (0-0.9); MONOCYTES % (AUTO) 7.6 % (2-12); NEUTROPHILS # (AUTO) 4.6 X10'3 (1.8-7.7); NEUTROPHILS % (AUTO) 63.1 % (42-75); PLATELET COUNT 167 X10'3 (140-440); RED BLOOD COUNT 5.08 X10'6 (4.20-5.60); RED CELL DISTRIBUTION WIDTH 16.2 % (11.5-14.5); WHITE BLOOD COUNT 7.3 X10'3 (4.5-11.0)
[2024-06-15 11:56] LABS: ALBUMIN 2.8 G/DL (3.4-5.0); ANION GAP 7 (8-16); BLOOD UREA NITROGEN 22 MG/DL (7-18); CALCIUM 8.7 MG/DL (8.5-10.1); CHLORIDE 102 MMOL/L (99-107); GLUCOSE 216 MG/DL (70-104); POTASSIUM 3.5 MMOL/L (3.5-5.1); SODIUM 137 MMOL/L (135-145); eGFR 47 ML/MIN
[2024-06-15 11:58] LABS: INR 1.1 INR; PROTHROMBIN TIME 11.6 SECONDS (9.0-12.0)
[2024-06-16] VITALS (11 sets, daily range): BP systolic 101–133; BP diastolic 46–86; PULSE 53–98; RESP 13–18; TEMP 98; O2SAT 95–97
[~2024-06-16] VITALS: Ht 172.7 cm; Wt 110.7 kg
[~2024-06-16 06:49] MED LIST changes: -CHOL500049 PO; -ROSU10TA28 PO; +ROSU10TA72 PO
[2024-06-16] MEDS ORDERED: diphenhydrAMINE 25mg capsule PO ONE (07:20)
[2024-06-16] MEDS ORDERED: atropine 0.1mg/ml 10ml syringe IV ONE (07:20)
[2024-06-16] MEDS ORDERED: amiodarone 150mg/dext, iso-os 100 ML IV ONE (07:20)
[2024-06-16] MEDS ORDERED: LORazepam 0.5 MG tablet PO ONE (07:20)
[2024-06-16] MEDS ORDERED: GLUC3SPR TOP (07:35)
[2024-06-16] MEDS ORDERED: APIX2.5T PO (07:35)
[2024-06-16] MEDS ORDERED: FURO20TA4 PO (07:35)
[2024-06-16] MEDS ORDERED: ALBU18HF2 INH (07:35)
[2024-06-16] MEDS ORDERED: CHOL500049 PO (07:35)
[2024-06-16] MEDS ORDERED: HYDR25TA4 PO (07:35)
[2024-06-16] MEDS ORDERED: CARV12.549 PO (07:35)
[2024-06-16] MEDS: morphine 10mg/ml inj. IV ONE (10:29)
[2024-06-16] MEDS: MIDAZolam 1mg/ml 10ml vial IV ONE (10:29)
== END 2024-06-16 12:31 | disposition home or self-care (01) ==
LOC: SSTAY O 06:49
PROVIDERS: ATTEND Internal Medicine Cardiovascular Disease
DX: I48.0 Paroxysmal atrial fibrillation (principal); I44.7 Left bundle-branch block, unspecified; I11.0 Hypertensive heart disease with heart failure; I50.30 Unspecified diastolic (congestive) heart failure; E11.9 Type 2 diabetes mellitus without complications; I25.10 Atherosclerotic heart disease of native coronary artery without angina pectoris; E78.5 Hyperlipidemia, unspecified; G47.30 Sleep apnea, unspecified; I42.0 Dilated cardiomyopathy; Z79.01 Long term (current) use of anticoagulants
CPT/HCPCS: 36415; 80048; 85025; 85610; 92960; 93005; J2250; J2270; J7030; J2274

== ENCOUNTER 2025-02-24 05:54 | Day surgery (SDC) | payer MEDICARE, BC ==
[2025-02-23 12:34] LABS: BASOPHILS % (AUTO) 0.4 % (0-1); EOSINOPHILS # (AUTO) 0.1 X10'3 (0-0.9); EOSINOPHILS % (AUTO) 1.2 % (0-6); HEMATOCRIT 40.3 % (35.0-45.0); HEMOGLOBIN 12.8 g/dl (12.0-16.0); LYMPHOCYTES # (AUTO) 2.3 X10'3 (1.1-4.8); LYMPHOCYTES % (AUTO) 24.9 % (21-51); MEAN CORPUSCULAR HEMOGLOBIN 26.6 PG (27.0-31.0); MEAN CORPUSCULAR HGB CONC 31.9 g/dL (33.0-36.5); MEAN CORPUSCULAR VOLUME 83.6 FL (78-98); MEAN PLATELET VOLUME 9.9 FL (7.4-10.4); MONOCYTES # (AUTO) 0.6 X10'3 (0-0.9); MONOCYTES % (AUTO) 6.2 % (2-12); NEUTROPHILS # (AUTO) 6.1 X10'3 (1.8-7.7); NEUTROPHILS % (AUTO) 67.3 % (42-75); PLATELET COUNT 168 X10'3 (140-440); RED BLOOD COUNT 4.82 X10'6 (4.20-5.60); RED CELL DISTRIBUTION WIDTH 16.4 % (11.5-14.5); WHITE BLOOD COUNT 9.1 X10'3 (4.5-11.0)
[2025-02-23 12:46] LABS: ALBUMIN 2.9 G/DL (3.4-5.0); ANION GAP 8 (8-16); BLOOD UREA NITROGEN 13 MG/DL (7-18); BUN/CREATININE RATIO 14.8 (10.0-20.0); CALCIUM 8.6 MG/DL (8.5-10.1); CHLORIDE 106 MMOL/L (99-107); CREATININE 0.88 MG/DL (0.40-0.90); GLUCOSE 147 MG/DL (70-104); INR 1.1 INR; POTASSIUM 4.3 MMOL/L (3.5-5.1); PROTHROMBIN TIME 11.5 SECONDS (9.0-12.0); SODIUM 143 MMOL/L (135-145); TOTAL CARBON DIOXIDE 28.8 MMOL/L (24-32); eGFR 61 ML/MIN
[2025-02-24] VITALS (13 sets, daily range): BP systolic 118–180; BP diastolic 59–131; PULSE 60–120; RESP 14–16; TEMP 98.2; O2SAT 94–100
[~2025-02-24] VITALS: Ht 172.7 cm; Wt 111.1 kg
[~2025-02-24 05:54] MED LIST changes: +ALBU18HF2 INH; +APIX2.5T PO; -APIX5TAB3 PO; +CARV12.549 PO; -CARV6.253 PO; +CHOL500049 PO; -DAPA10TA PO; +FURO20TA4 PO; +GLUC3SPR TOP; +HYDR25TA4 PO
[2025-02-24] MEDS ORDERED: DAPA10TA PO (06:28)
[2025-02-24] MEDS ORDERED: APIX5TAB3 PO (06:28)
[2025-02-24] MEDS ORDERED: POTA-205 PO (06:29)
[2025-02-24] MEDS ORDERED: LORazepam 0.5 MG tablet PO ONE (07:00)
[2025-02-24] MEDS ORDERED: atropine 0.1mg/ml 10ml syringe IV ONE (07:00)
[2025-02-24] MEDS ORDERED: amiodarone 150mg/dext, iso-os 100 ML IV ONE (07:00)
[2025-02-24] MEDS ORDERED: diphenhydrAMINE 25mg capsule PO ONE (07:00)
[2025-02-24] MEDS: MIDAZolam 1mg/ml 10ml vial IV ONE (09:54)
[2025-02-24] MEDS: furosemide 40mg/4ml inj IV ONE (09:55)
[2025-02-24] MEDS: morphine 10mg/ml inj. IV ONE (09:55)
[2025-02-24] MEDS: potassium Cl 20 mEq SR tablet PO STA (09:55)
[2025-02-24] MEDS: normal saline 1000ml 1,000 ML IV SCH (09:55)
[2025-02-24] MEDS ORDERED: POTA-207 PO (10:55)
[2025-02-24] MEDS ORDERED: FURO-149 PO (10:55)
== END 2025-02-24 12:15 | disposition home or self-care (01) ==
LOC: SSTAY O 05:54
PROVIDERS: ATTEND Internal Medicine Cardiovascular Disease
DX: I48.0 Paroxysmal atrial fibrillation (principal); I44.7 Left bundle-branch block, unspecified; I25.10 Atherosclerotic heart disease of native coronary artery without angina pectoris; I49.5 Sick sinus syndrome; I42.0 Dilated cardiomyopathy; I34.0 Nonrheumatic mitral (valve) insufficiency; I11.0 Hypertensive heart disease with heart failure; I50.30 Unspecified diastolic (congestive) heart failure; E78.5 Hyperlipidemia, unspecified; E11.9 Type 2 diabetes mellitus without complications; G47.30 Sleep apnea, unspecified; Z90.710 Acquired absence of both cervix and uterus; Z90.49 Acquired absence of other specified parts of digestive tract; Z98.49 Cataract extraction status, unspecified eye; Z98.890 Other specified postprocedural states
CPT/HCPCS: 36415; 80048; 82948; 83880; 85025; 85610; 92960; 93005; J1940; J2250; J2270; J7030; J2274